=== PATIENT | female | born 1935 ===

== ENCOUNTER 2018-06-28 01:06 | Day surgery (SDC) | payer MEDICARE, OTHER ==
[2018-06-28] VITALS (7 sets, daily range): BP systolic 105–171; BP diastolic 52–81
[~2018-06-28] VITALS: Ht 152.4 cm; Wt 68.5 kg
[~2018-06-28 01:06] MED LIST: ASPI-1471 PO; BETA1TAB44 PO; CHOL500062 PO; CRAN500T PO; CYAN1TAB68 INJ; DEN60I SUBQ; ESCI10TA8 PO; HYDR-2966 PO; LEVO-3 PO; LOSA50TA74 PO; METO25TA23 PO; POTA10CA40 PO
[2018-06-28] MEDS ORDERED: fentaNYL CITR 100 MCG/2 ML AMP ONE ×2 (07:46→12:10)
[2018-06-28] MEDS ORDERED: DEXAMETHASONE SOD 4 MG/ML VIAL ONE (07:52)
[2018-06-28] MEDS ORDERED: PROPOFOL EMUL(*) 10MG/ML 20 ML 20 ML ONE (07:52)
[2018-06-28] MEDS ORDERED: ONDANSETRON 4 MG/2 ML VIAL ONE (07:52)
[2018-06-28] MEDS ORDERED: LIDOCAINE MPF 1% 5 ML VIAL ONE (07:52)
[2018-06-28] MEDS ORDERED: FAMOTIDINE 20 MG TAB PO ONE (09:15)
[2018-06-28] MEDS ORDERED: CELECOXIB 200 MG CAP PO ONE (09:15)
[2018-06-28] MEDS ORDERED: ceFAZolin(*) 1 GM VIAL 1 GM in NS(*) 0.9% 100 ML ADDVANT BAG 100 ML IVPB ONE (09:15)
[2018-06-28] MEDS ORDERED: NORMOSOL R SOLN(*) 1000 ML BAG 1,000 ML IV PRN (09:15)
[2018-06-28] MEDS ORDERED: LIDOCAINE/SOD BICARB 8.4% SYR ID ONE (09:15)
[2018-06-28] MEDS ORDERED: MIDAZOLAM 2 MG/2 ML VIAL IVP PRN (09:15)
[2018-06-28] MEDS ORDERED: ROPIVACAINE 0.2% 20 ML VIAL ONE ×2 (09:56→10:10)
[2018-06-28] MEDS ORDERED: NS 0.9% 20 ML SDV 20 ML ONE (10:35)
[2018-06-28] MEDS ORDERED: HYDR-653 PO (11:36)
--- NOTE | 2018-06-28 12:42 | RADIOLOGY IMAGING REPORT ---
FACILITY: [facility] PATIENT NAME: Courtney De Oliveira : 1935 MR: [id number] V: [id number] EXAM DATE: ORDERING PHYSICIAN: CORY PRICE TECHNOLOGIST: Location: [facility] Patient: Courtney De Oliveira : 1935 Visit/Account:[id number] Date of Sevice: 06/28/2018 Exam type: C-ARM FLUORO 1 HR History: HARDWARE REMOVAL RIGHT HIP Comparison: None. Findings: Fluoroscopy was used for the purposes of removal of right hip hardware. Total fluoroscopy time is 29 .2 seconds for a total DAP of 0.78514 mGy/m2. The provided images demonstrate a surgical screw removed from the right hip. IMPRESSION: 1. Fluoroscopy was used for the purposes of removal of hardware from the right hip. Report Dictated By: Camacho Meza MD at 06/28/2018 12:37 PM Report E-Signed By: Camacho Meza MD at 06/28/2018 12:38 PM WSN:[id number]
[2018-06-28] MEDS ORDERED: APAP/HYDROCODONE 325/5 TAB PO ONE (13:10)
== END 2018-06-28 12:56 | disposition home or self-care (01) ==
LOC: OR 01:06
PROVIDERS: ATTEND Orthopaedic Surgery
DX: Z47.2 Encounter for removal of internal fixation device (principal)
CPT/HCPCS: 20680; 76000; A9270; J1100; J2001; J2405; J2704; J2795; J3010; J7050